=== PATIENT | female | born 1975 | race Two or more races ===

== ENCOUNTER 2016-03-30 17:43 | Emergency (ER) | payer BC ==
[~2016-03-30] VITALS: Ht 170.2 cm; Wt 49.9 kg
[2016-03-30 17:49] VITALS: BP 153/72
[2016-03-30 18:44] LABS: APPEARANCE,URINE CLEAR; BASOPHILS % (AUTO) 0.7 % (0.0-2.0); EOSINOPHILS % (AUTO) 0.1 % (0.0-3.0); KETONES,URINE 4+ (NEGATIVE); LEUKOCYTE ESTERASE ,URINE 1+ (NEGATIVE); LYMPHOCYTES % (AUTO) 14.3 % (20.0-45.0); MEAN CORPUSCULAR HEMOGLOBIN 32.7 PG (27.0-31.0); MEAN CORPUSCULAR HGB CONC 33.2 G/DL (32.0-36.0); MEAN CORPUSCULAR VOLUME 99 FL (80-99); MEAN PLATELET VOLUME 5.3 FL (6.5-10.1); MONOCYTES % (AUTO) 5.9 % (1.0-10.0); NEUTROPHILS % (AUTO) 78.9 % (45.0-75.0); NITRITE,URINE NEGATIVE (NEGATIVE); PH,URINE 9 (4.5-8.0); PLATELET COUNT 377 K/UL (150-450); PROTEIN,URINE 3+ (NEGATIVE); RED CELL DISTRIBUTION WIDTH 11.7 % (11.6-14.8); UROBILINOGEN,URINE NORMAL MG/DL (0.0-1.0); WHITE BLOOD COUNT 10.2 K/UL (4.8-10.8)
[2016-03-30] MEDS ORDERED: Morphine Sulfate 4mg/ml Inj IVP ONE (18:45)
[2016-03-30 18:51] LABS: BACTERIA,URINE FEW /HPF; RBC,URINE 0-2 /HPF (0 - 2); SQUAMOUS EPITHELIAL CELL,UR FEW /LPF (NONE/OCC)
[2016-03-30 18:53] VITALS: BP 128/73
--- NOTE | 2016-03-30 19:06 | Emergency Room Report ---
History of Present Illness General Chief Complaint: Abdominal Pain Source: Patient, EMS (VIVIANE SAHNI M.D.) Present Illness HPI 40 YO F with 1 week intermittent abd pain, nausea/vomiting and diarrhea. No assoc with eating. Denies previous abd surgery. Denies urinary complaints. Denies drug use currently, endorses past marijuana use. States that she had "multiple CTs and MRI" last year and no one could figure out what was "wrong with me." Denies sick contacts, foreign travel. No other info available per EMR. (VIVIANE SAHNI M.D.) Allergies: Coded Allergies: ASPIRIN (Verified Allergy, Unknown, 03/30/16) Patient History Past Medical History: none Past Surgical History: none Pertinent Family History: none Social History: Denies: alcohol use, drug use, smoking Last Menstrual Period: 03/16/16 Now: No Immunizations: UTD Reviewed Nursing Documentation: PMH: Agreed, PSxH: Agreed (VIVIANE SAHNI M.D.) Nursing Documentation-PMH Past Medical History: No History, Except For (VIVIANE SAHNI M.D.) Review of Systems All Other Systems: negative except mentioned in HPI (VIVIANE SAHNI M.D.) Physical Exam Vital Signs Date Time Temp Pulse Resp B/P Pulse Ox O2 Delivery O2 Flow Rate FiO2 03/30/16 17:40 98.1 60 14 153/72 03/30/16 17:49 100 Room Air Sp02 EP Interpretation: reviewed, normal General Appearance: normal inspection, no apparent distress, alert, GCS 15, non -toxic, mild distress, other - Dramatic, writhing on stretcher, yelling Head: normocephalic, atraumatic Eyes: bilateral eye EOMI, bilateral eye PERRL ENT: normal ENT inspection, hearing grossly normal, normal voice Neck: normal inspection, full range of motion, supple, no bony tend Respiratory: normal inspection, lungs clear, normal breath sounds, no respiratory distress, no retraction, no wheezing Cardiovascular #1: regular rate, rhythm, no edema Gastrointestinal: normal inspection, normal bowel sounds, non tender, soft, no guarding, no hernia, other - Patient with epigastric and RUQ ttp. 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 VSS. Afebrile DDx includes marj, appy, colitis, gastroenteritis, polysubstance abuse PLAN: Labs, analgesia, zofran, IVF, urine preg, UA, Utox Reasssess (VIVIANE SAHNI M.D.) ER Course Patient signed out to me. She presents with severe abdominal pain with vomiting. She had similar symptoms in the past but it was [address] scan is unremarkable. Ultrasound unremarkable. Will admit or transfer days on insurance. Pt felt better now and wants to go home. Tolerating PO. Lab Results Impression labs unremarkable. (SUSHIL DOMINGUEZ M.D.) CT/MRI/US Diagnostic Results CT/MRI/US Diagnostic Results : Imaging Test Ordered: US abd Impression Neg per radiologist. (SUSHIL DOMINGUEZ M.D.) Last Vital Signs Date Time Temp Pulse Resp B/P Pulse Ox O2 Delivery O2 Flow Rate FiO2 03/30/16 18:53 53 14 128/73 100 Room Air 03/30/16 17:49 98.1 Status: improved Reevaluation Impression Utox positive for MJ, benzos No leuks. H&H stable CTAP unremarkble for acute process. ?gall stones Patient feels better after analgesia Will do US to r/o marj although unlikely given no leuks and normal bili Endorsed to Dr Dominguze at 10pm to follow up sono and determine disposition (VIVIAEN SAHNI M.D.) Status: improved (SUSHIL DOMINGUEZ M.D.) Disposition: HOME, SELF-CARE Condition: Stable Scripts Ondansetron (Zofran) 4 Mg Tablet 4 MG ORAL Q6H Y for Nausea & Vomiting, #10 TAB 0 Refills Prov: SUSHIL DOMINGUEZ M.D. 03/31/16 Patient Instructions: Abdominal Pain, Adult Additional Instructions: Followup your Dr. in one to 2 days. Return if worse. VIVIANE SAHNI M.D. Mar 30, 2016 19:06 SUSHIL DOMINGUEZ M.D. Mar 31, 2016 01:06
[2016-03-30 19:10] LABS: ALANINE AMINOTRANSFERASE 19 U/L (3-33); ALBUMIN/GLOBULIN RATIO 1.7 (1.0-2.7); ANION GAP 20 (5-15); ASPARTATE AMINO TRANSFERASE 25 U/L (5-40); CALCIUM 10.2 mg/dL (8.6-10.2); CARBON DIOXIDE 25 mEQ/L (20-30); CHLORIDE 95 mEQ/L (98-107); CREATININE 0.9 mg/dL (0.5-0.9); GLOMERULAR FILTRATION RATE > 60 mL/min (>60); HEMOLYSIS 5; LIPASE 55 U/L (< 60); POTASSIUM 4.1 mEQ/L (3.4-4.9); SODIUM 140 mEQ/L (135-145); TOTAL PROTEIN 8.1 g/dL (6.6-8.7)
[2016-03-30] MEDS ORDERED: Metoclopramide 10mg/2ml Inj IVP ONE (20:00)
[2016-03-30] MEDS ORDERED: HYDROmorphone 1 MG, DiphenhydrAMINE 25 MG in NS 55 ML IVPB ONE ×2 (20:00→20:45)
[2016-03-30 20:19] VITALS: BP 119/72
[2016-03-30] MEDS ORDERED: HYDROmorphone 1mg/NS 50ml IVPB 50 ML ONE (20:53)
[2016-03-30] MEDS ORDERED: DiphenhydrAMINE 25mg/10ml Elixir ONE (20:54)
[2016-03-30] MEDS ORDERED: DiphenhydrAMINE 50mg/ml Inj ONE (20:55)
[2016-03-30 22:07] VITALS: BP 115/65
[2016-03-30] MEDS ORDERED: HYDROmorphone 1mg/ml Carpuject IVP ONE (23:30)
[2016-03-31 00:02] VITALS: BP 129/80
[2016-03-31] MEDS ORDERED: ZOFRAN4 MG ORAL (01:22)
[2016-03-31 01:30] VITALS: BP 98/61
--- NOTE | 2016-03-31 10:03 | Diagnostic Imaging Report ---
Clinical Indication: Abdominal pain Technique: No oral contrast utilized, per emergency room physician request IV administration nonionic contrast. Venous phase spiral acquisition obtained through the abdomen and pelvis. Multiplanar reconstructions were generated. Total dose length product 590 mGycm. CTDIvol(s) 12 mGy Comparison: None Findings: Evaluation of the GI tract is limited by the absence of oral contrast. No definite evidence of diverticulosis or diverticulitis. The appendix is normal. The colon is nondistended. There is possible mild colonic wall thickening, although this is probably artifact of under distention. Normal caliber small bowel. No free or loculated intraperitoneal air or fluid. Distal esophagus, stomach, duodenum are unremarkable. The liver demonstrates innumerable subcentimeter low-attenuation lesions scattered throughout the parenchyma. The gallbladder demonstrates very questionable small gallstones. The bile ducts, pancreas, spleen, are unremarkable. The kidneys demonstrate tiny subcentimeter low-attenuation lesions bilaterally, too small to characterize, most likely benign simple cysts. No mesenteric or retroperitoneal mass or adenopathy. No pelvic mass or adenopathy. Normal uterus and adnexal structures. The included lung bases are clear. The bones are unremarkable. Impression: Equivocal mild colonic wall thickening, probably an artifact of under distention, mild colitis not completely excludable No acute process otherwise Equivocal cholelithiasis. Correlate with ultrasound Innumerable hepatic low attenuation lesions, too small to characterize, most likely small cysts or bile hamartomas. No further followup necessary Subcentimeter low-attenuation lesions and the kidneys, too small to characterize, most likely benign cortical cysts. No further followup necessary This agrees with the preliminary interpretation provided overnight by Dr. Quezada The CT scanner at [facility] is accredited by the [employer] and the scans are performed using protocols designed to limit radiation exposure to as low as reasonably achievable to attain images of sufficient resolution adequate for diagnostic evaluation.
--- NOTE | 2016-04-02 10:15 | Diagnostic Imaging Report ---
Indication: Chronic pain Technique: [place]-scale and duplex images of the upper abdomen were obtained Comparison: Reference made to CT abdomen pelvis dated 03/30/2016 Findings: . Gallbladder is unremarkable, without stones, wall thickening, nor pericholecystic fluid. Sonographic Chavarria's sign is negative. Common bile duct measures 2 mm in diameter. No intrahepatic biliary ductal dilatation. Liver demonstrates normal echogenicity, no focal abnormality. Portal vein and hepatic veins are patent.. Pancreas is unremarkable. Spleen is unremarkable. Left kidney measures 10.1 cm in length. Right kidney measures cm length. Both kidneys demonstrate normal echogenicity. There is no hydronephrosis. No focal abnormality. . Non-aneurysmal abdominal aorta. Impression: Negative for gallstones. Gallstones questioned on recent CT scan are probably artifactual negative for dilated ducts Otherwise unremarkable exam. Note that tiny hepatic and renal lesions described on recent CT are not visible sonographically
== END 2016-03-31 01:30 | disposition home or self-care (01) ==
LOC: EDBD 17:43 → EMR 18:55 → EDBEDREQ 23:32 → EMR 03-31 01:30
DX: R10.13 Epigastric pain (principal); R11.2 Nausea with vomiting, unspecified; E86.0 Dehydration; Z88.6 Allergy status to analgesic agent
CPT/HCPCS: 36415; 74177; 76700; 80053; 80300; 81003; 81025; 83605; 83690; 85025; 96361; 96374; 96375; 99284; J1170; J1200; J2270; J2405; J2765; Q9967